=== PATIENT | female | born 1990 ===

== ENCOUNTER 2019-06-26 03:34 | Inpatient (IN) | payer BC ==
[2019-06-26] MEDS ORDERED: Ondansetron 4 MG/2 ML SDV IVPUSH PRN (07:01)
[2019-06-26] MEDS ORDERED: Carboprost Tromethamine 250 MCG/1 ML Amp IM PRN (07:01)
[2019-06-26] MEDS ORDERED: Methylergonovine 0.2 MG/1 ML Amp IM PRN (07:01)
[2019-06-26] MEDS ORDERED: Sodium Chloride 0.9% 10 ML SDV IV PRN (07:01)
[2019-06-26] MEDS ORDERED: Butorphanol 1 MG/ML SDV IVPUSH PRN (07:01)
[2019-06-26] MEDS ORDERED: Lidocaine 1% 50 ML MDV INJECT PRN (07:01)
[2019-06-26] MEDS ORDERED: Water For Irrigation,Sterile 1,000 ML Container IRR PRN (07:01)
[2019-06-26] MEDS ORDERED: Tranexamic Acid 1,000 MG in Sodium Chloride 0.9% 100 ML IV PRN (07:01)
[2019-06-26] MEDS ORDERED: Sodium Chloride 0.9% 2.5 ML Syringe FLUSH PRN (07:01)
[2019-06-26] MEDS ORDERED: Nalbuphine 10 MG/1 ML Vial IVPUSH PRN (07:01)
[2019-06-26] MEDS ORDERED: Sodium Chloride 0.9% 10 ML Syringe FLUSH PRN (07:01)
[2019-06-26] MEDS ORDERED: Misoprostol 200 MCG Tab PO PRN (07:01)
[2019-06-26] MEDS ORDERED: Oxytocin/0.9 % Sodium Chloride 30 UNIT/500 ML BAG IV SCH ×2 (07:15→08:30)
[2019-06-26] MEDS: Lactated Ringers 1,000 ML IV SCH ×2 (08:41→09:27)
[2019-06-26] MEDS ORDERED: Ropivacaine HCl/PF 100 ML ONE (09:16)
[2019-06-26] MEDS ORDERED: fentaNYL 100 MCG/2 ML SDV ONE (09:16)
--- NOTE | 2019-06-26 09:41 | PCM.PREANE ---
Preanesthetic Assessment - Anesthesia/Transfusion/Family Hx Anesthesia History: Prior Anesthesia Without Reaction Family History of Anesthesia Reaction: No - Physical Assessment NPO Status Date: 06/26/19 NPO Status Time: 08:00 Height: 1.68 m Weight: 83.915 kg ASA Class: 1 - Lab Values: Laboratory Last Values WBC 8.96 K/uL (4.0-11.0) 06/26/19 07:37 RBC 4.05 M/uL (4.30-5.90) L 06/26/19 07:37 Hgb 10.9 g/dL (12.0-16.0) L 06/26/19 07:37 Hct 35.2 % (36.0-46.0) L 06/26/19 07:37 MCV 86.9 fL (80.0-98.0) 06/26/19 07:37 MCH 26.9 pg (27.0-32.0) L 06/26/19 07:37 MCHC 31.0 g/dL (31.0-37.0) 06/26/19 07:37 RDW Std Deviation 45.7 fl (28.0-62.0) 06/26/19 07:37 RDW Coeff of Roc 15 % (11.0-15.0) 06/26/19 07:37 Plt Count 250 K/uL (150-400) 06/26/19 07:37 MPV 9.80 fL (7.40-12.00) 06/26/19 07:37 Nucleated RBC % 0.0 /100WBC 06/26/19 07:37 Nucleated RBCs # 0 K/uL 06/26/19 07:37 Urine Color YELLOW 06/26/19 06:05 Urine Appearance CLEAR 06/26/19 06:05 Urine pH 6.0 (5.0-8.0) 06/26/19 06:05 Ur Specific [place] <= 1.005 (1.001-1.035) 06/26/19 06:05 Urine Protein NEGATIVE mg/dL (NEGATIVE) 06/26/19 06:05 Urine Glucose (UA) NEGATIVE mg/dL (NEGATIVE) 06/26/19 06:05 Urine Ketones NEGATIVE mg/dL (NEGATIVE) 06/26/19 06:05 Urine Occult Blood TRACE-INTACT (NEGATIVE) H 06/26/19 06:05 Urine Nitrite NEGATIVE (NEGATIVE) 06/26/19 06:05 Urine Bilirubin NEGATIVE (NEGATIVE) 06/26/19 06:05 Urine Urobilinogen 0.2 EU/dL (<2.0) 06/26/19 06:05 Ur Leukocyte Esterase TRACE (NEGATIVE) H 06/26/19 06:05 Blood Type A POSITIVE 06/26/19 07:37 Antibody Screen NEGATIVE 06/26/19 07:37 - Allergies Allergies/Adverse Reactions: Allergies Allergy/AdvReac Type Severity Reaction Status Date / Time No Known Allergies Allergy Verified 06/26/19 03:49 - Acknowledgements Anesthesia Type Planned: Epidural Pt an Appropriate Candidate for the Planned Anesthesia: Yes Alternatives and Risks of Anesthesia Discussed w Pt/Guardian: Yes Pt/Guardian Understands and Agrees with Anesthesia Plan: Yes PreAnesthesia Questionnaire - Past Health History Medical/Surgical History: Denies 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 Smoking Status *Q: Never Smoker Second Hand Smoke Exposure: No Recreational Drug Use History: No - HOME MEDS Home Medications: Home Meds Iron 1 06/26/19 [History] Loratadine [Claritin] 06/26/19 [History] Pnv #30/Iron Carb&Aspg/Fa/Om3 [OB Complete with DHA Softgel] 1 tab 06/26/19 [ History] - CURRENT (IN HOUSE) MEDS Current Meds: Current Medications Butorphanol Tartrate (Stadol) 1 mg IVPUSH Q1H PRN PRN Reason: Pain Carboprost Tromethamine (Hemabate Ds) 250 mcg IM ASDIRECTED PRN PRN Reason: Post Hemorrhage Tranexamic Acid 1,000 mg/ (Sodium Chloride) 110 mls @ 660 mls/hr IV ONETIME PRN PRN Reason: Bleeding Lactated Ringer's (Ringers, Lactated) 1,000 mls @ 150 mls/hr IV ASDIRECTED ELIZABETH Last Admin: 06/26/19 09:27 Dose: 150 mls/hr Oxytocin/Sodium Chloride (Oxytocin 30 Unit/500 Ml-Ns) 30 unit in 500 mls @ 999 mls/hr IV TITRATE ELIZABETH Oxytocin/Sodium Chloride (Oxytocin 30 Unit/500 Ml-Ns) 30 unit in 500 mls @ 2 mls/hr IV TITRATE ELIZABETH; Protocol Last Infusion: 06/26/19 09:05 Dose: 0 munits/min, 0 mls/hr Lidocaine HCl (Xylocaine 1%) 50 ml INJECT ONETIME PRN PRN Reason: Laceration repair Methylergonovine Maleate (Methergine) 0.2 mg IM ASDIRECTED PRN PRN Reason: Post Hemorrhage Misoprostol (Cytotec) 200 mcg PO ONETIME PRN PRN Reason: Post Hemorrhage Nalbuphine HCl (Nubain) 10 mg IVPUSH Q1H PRN PRN Reason: Pain (severe 7-10) Ondansetron HCl (Zofran) 4 mg IVPUSH Q6H PRN PRN Reason: Nausea/Vomiting Sodium Chloride (Saline Flush) 10 ml FLUSH ASDIRECTED PRN PRN Reason: Keep Vein Open Sodium Chloride (Saline Flush) 2.5 ml FLUSH ASDIRECTED PRN PRN Reason: Keep Vein Open Sodium Chloride (Normal Saline) 10 ml IV ASDIRECTED PRN PRN Reason: IV Use Sterile Water (Sterile Water For Irrigation) 1,000 ml IRR ASDIRECTED PRN PRN Reason: delivery Discontinued Medications Fentanyl (Sublimaze) Confirm Administered Dose 100 mcg .ROUTE .STK-MED ONE Stop: 06/26/19 09:17 Ropivacaine (Naropin 0.2%) Confirm Administered Dose 100 mls @ as directed .ROUTE .STK-MED ONE Stop: 06/26/19 09:17
--- NOTE | 2019-06-26 09:43 | PCM.PRNOTE ---
- Free Text/Narrative Note: Anes Note Patient requests epidural for L&D. Sitting position, Level L3-L4 midline approach. Sterile technique, chloraprep scrub to lumbar area. Sterile fenestrated drape applied. Epidural space easily achieved using FIDE technique. FIDE at 3 cm. Cath threaded 5 cm with ease. Cath secured at skin at 9 cm. 0925 Test 3 cc 1.5% lido wtih epi negative. 09 Load 10 cc 0.2% ropiv with 1 mcg cc fentanyl in slow divided doses. 0935 Pump started with 90 cc same solution. Rate is 8 cc hr with 6 cc q 20 min prn bolus. Yina well. 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
[2019-06-26 09:48] LABS: BLOOD UREA NITROGEN,BUN 8 mg/dL (7.0-18.0)
[2019-06-26] MEDS ORDERED: Docusate Sodium 100 MG Cap PO PRN (12:46)
[2019-06-26] MEDS ORDERED: oxyCODONE 5 MG Tab PO PRN (12:46)
[2019-06-26] MEDS ORDERED: Benzocaine/Menthol 20%-0.5% Spray 78 GM Cannister TOP PRN (12:46)
[2019-06-26] MEDS ORDERED: Acetaminophen 500 MG Tab PO PRN ×2 (12:46)
[2019-06-26] MEDS ORDERED: Lanolin 100% Cream 7 GM Tube TOP PRN (12:46)
[2019-06-26] MEDS ORDERED: Witch Hazel Medicated Pads 40/Jar TOP PRN (12:46)
[2019-06-26] MEDS ORDERED: Bisacodyl 10 MG Supp RECTAL PRN (12:46)
[2019-06-26] MEDS ORDERED: Ibuprofen 400 MG Tab PO PRN (12:46)
--- NOTE | 2019-06-26 12:54 | PCM.DEL ---
L & D Note - General Info Date of Service: 06/26/19 Mother's Due Date: 07/01/19 - Delivery Note Labor: Spontaneous, Augmented by ARM Delivery Outcome: Livebirth Presentation: Right Occiput Anterior (RIKY) Nuchal Cord: None Anesthesia Type: Epidural Amniotic Fluid Description: Clear Episiotomy Type: None Laceration: None Placenta: Intact Cord: 3 Vessels Estimated Blood Loss: 300 Resuscitation Needed: No Score 1 min: 9 Score 5 min: 9 Delivery Comments (Free Text/Narrative):: Live female delivered at 1225pm 9/9, wt 3700g - General Info Date of Service: 06/26/19 - Patient Data Weight - Most Recent: 83.915 kg Lab Results Last 24 Hours: Laboratory Results - last 24 hr 06/26/19 06/26/19 06/26/19 Range/Units 06:05 07:37 07:37 WBC 8.96 (4.0-11.0) K/uL RBC 4.05 L (4.30-5.90) M/uL Hgb 10.9 L (12.0-16.0) g/dL Hct 35.2 L (36.0-46.0) % MCV 86.9 (80.0-98.0) fL MCH 26.9 L (27.0-32.0) pg MCHC 31.0 (31.0-37.0) g/dL RDW Std Deviation 45.7 (28.0-62.0) fl RDW Coeff of Roc 15 (11.0-15.0) % Plt Count 250 (150-400) K/uL MPV 9.80 (7.40-12.00) fL Nucleated RBC % 0.0 /100WBC Nucleated RBCs # 0 K/uL BUN (7.0-18.0) mg/dL Creatinine (0.6-1.0) mg/dL Est Cr Clr Drug Dosing mL/min Estimated GFR (MDRD) ml/min Uric Acid (2.6-7.2) mg/dL AST (15-37) IU/L ALT (14-63) IU/L Lactate Dehydrogenase (81-234) U/L Urine Color YELLOW Urine Appearance CLEAR Urine pH 6.0 (5.0-8.0) Ur Specific [place] <= 1.005 (1.001-1.035) Urine Protein NEGATIVE (NEGATIVE) mg/dL Urine Glucose (UA) NEGATIVE (NEGATIVE) mg/dL Urine Ketones NEGATIVE (NEGATIVE) mg/dL Urine Occult Blood TRACE-INTACT H (NEGATIVE) Urine Nitrite NEGATIVE (NEGATIVE) Urine Bilirubin NEGATIVE (NEGATIVE) Urine Urobilinogen 0.2 (<2.0) EU/dL Ur Leukocyte Esterase TRACE H (NEGATIVE) Blood Type A POSITIVE Antibody Screen NEGATIVE 06/26/19 Range/Units 07:37 WBC (4.0-11.0) K/uL RBC (4.30-5.90) M/uL Hgb (12.0-16.0) g/dL Hct (36.0-46.0) % MCV (80.0-98.0) fL MCH (27.0-32.0) pg MCHC (31.0-37.0) g/dL RDW Std Deviation (28.0-62.0) fl RDW Coeff of Roc (11.0-15.0) % Plt Count (150-400) K/uL MPV (7.40-12.00) fL Nucleated RBC % /100WBC Nucleated RBCs # K/uL BUN 8 (7.0-18.0) mg/dL Creatinine 0.7 (0.6-1.0) mg/dL Est Cr Clr Drug Dosing 110.01 mL/min Estimated GFR (MDRD) > 60.0 ml/min Uric Acid 3.8 (2.6-7.2) mg/dL AST 14 L (15-37) IU/L ALT 15 (14-63) IU/L Lactate Dehydrogenase 161 (81-234) U/L Urine Color Urine Appearance Urine pH (5.0-8.0) Ur Specific [place] (1.001-1.035) Urine Protein (NEGATIVE) mg/dL Urine Glucose (UA) (NEGATIVE) mg/dL Urine Ketones (NEGATIVE) mg/dL Urine Occult Blood (NEGATIVE) Urine Nitrite (NEGATIVE) Urine Bilirubin (NEGATIVE) Urine Urobilinogen (<2.0) EU/dL Ur Leukocyte Esterase (NEGATIVE) Blood Type Antibody Screen Med Orders - Current: Current Medications Butorphanol Tartrate (Stadol) 1 mg IVPUSH Q1H PRN PRN Reason: Pain Carboprost Tromethamine (Hemabate Ds) 250 mcg IM ASDIRECTED PRN PRN Reason: Post Hemorrhage Tranexamic Acid 1,000 mg/ (Sodium Chloride) 110 mls @ 660 mls/hr IV ONETIME PRN PRN Reason: Bleeding Lactated Ringer's (Ringers, Lactated) 1,000 mls @ 150 mls/hr IV ASDIRECTED [facility]IZABETH Last Admin: 06/26/19 09:27 Dose: 150 mls/hr Oxytocin/Sodium Chloride (Oxytocin 30 Unit/500 Ml-Ns) 30 unit in 500 mls @ 999 mls/hr IV TITRATE [facility] Last Admin: 06/26/19 12:41 Dose: 500 mls/hr Oxytocin/Sodium Chloride (Oxytocin 30 Unit/500 Ml-Ns) 30 unit in 500 mls @ 2 mls/hr IV TITRATE ELIZABETH; Protocol Last Infusion: 06/26/19 09:05 Dose: 0 munits/min, 0 mls/hr Lidocaine HCl (Xylocaine 1%) 50 ml INJECT ONETIME PRN PRN Reason: Laceration repair Methylergonovine Maleate (Methergine) 0.2 mg IM ASDIRECTED PRN PRN Reason: Post Hemorrhage Misoprostol (Cytotec) 200 mcg PO ONETIME PRN PRN Reason: Post Hemorrhage Nalbuphine HCl (Nubain) 10 mg IVPUSH Q1H PRN PRN Reason: Pain (severe 7-10) Ondansetron HCl (Zofran) 4 mg IVPUSH Q6H PRN PRN Reason: Nausea/Vomiting Sodium Chloride (Saline Flush) 10 ml FLUSH ASDIRECTED PRN PRN Reason: Keep Vein Open Sodium Chloride (Saline Flush) 2.5 ml FLUSH ASDIRECTED PRN PRN Reason: Keep Vein Open Sodium Chloride (Normal Saline) 10 ml IV ASDIRECTED PRN PRN Reason: IV Use Sterile Water (Sterile Water For Irrigation) 1,000 ml IRR ASDIRECTED PRN PRN Reason: delivery Last Admin: 06/26/19 12:42 Dose: 1,000 ml Discontinued Medications Fentanyl (Sublimaze) Confirm Administered Dose 100 mcg .ROUTE .STK-MED ONE Stop: 06/26/19 09:17 Ropivacaine (Naropin 0.2%) Confirm Administered Dose 100 mls @ as directed .ROUTE .STK-MED ONE Stop: 06/26/19 09:17 - Problem List & Annotations (1) Vaginal delivery SNOMED Code(s): 359590799 Code(s): O80 - ENCOUNTER FOR FULL-TERM UNCOMPLICATED DELIVERY Status: Acute Current Visit: Yes - Problem List Review Problem List Initiated/Reviewed/Updated: Yes - My Orders Last 24 Hours: My Active Orders 06/26/19 09:21 PIH Panel [OM.PC] Routine 06/26/19 12:46 Acetaminophen [Tylenol Extra Strength] 1,000 mg PO Q4H PRN Acetaminophen [Tylenol Extra Strength] 500 mg PO Q4H PRN Benzocaine/Menthol [Dermoplast Pain Relief 20%-0.5% [place]] 78 gm TOP ASDIRECTED PRN Docusate Sodium [Colace] 100 mg PO BID PRN Ibuprofen [Motrin] 400 mg PO Q4H PRN Ibuprofen [Motrin] 800 mg PO Q6H PRN Lanolin [Lansinoh HPA] See Dose Instructions TOP ASDIRECTED PRN bisacodyL [Dulcolax] 10 mg RECTAL ONETIME PRN oxyCODONE 5 mg PO Q2H PRN witch Agnieszka [Tucks] 1 pad TOP ASDIRECTED PRN Resuscitation Status Routine 06/26/19 12:48 Patient Status [ADT] Routine May Shower [RC] ASDIRECTED Up ad Roseanna [RC] ASDIRECTED Vital Signs [RC] PER UNIT ROUTINE Assess Lochia [WOMSER] Per Unit Routine Assess Uterine Involution [WOMSER] Per Unit Routine Peripheral IV Discontinue [OM.PC] Routine 06/27/19 05:11 HEMOGLOBIN/HEMATOCRIT,HH [HEME] Timed
[2019-06-26] MEDS: Ibuprofen 800 MG Tab PO PRN ×2 (16:44→22:12)
--- NOTE | 2019-06-26 22:01 | OR ---
SURGEON: AZALIA SANTOS DATE OF PROCEDURE: 06/26/2019 PREOPERATIVE DIAGNOSIS: 29-year-old G2, P-1-0-0-1 at 39 weeks and 2 days, admitted for early labor. POSTOPERATIVE DIAGNOSIS: 29-year-old G2, P-1-0-0-1 at 39 weeks and 2 days, admitted for early labor. PROCEDURE: Normal spontaneous vaginal delivery. ESTIMATED BLOOD LOSS: 300. ANESTHESIA: Epidural. NOTES AND FINDING: Live female delivered at 12:25 p.m. score 9 and 9. Weight is 3700 g. BRIEF HISTORY: She is 29-year-old G2, P-1-0-0-1 at 39 weeks 2 days, low risk patient who came in complaining of contractions. She was noted to be 3 to 4 cm dilated, she became 5 cm. She was ruptured and clear fluid was noted. She made normal labor progress and became fully dilated. DESCRIPTION OF PROCEDURE: With the patient being fully dilated, she delivered the head in RIKY position followed subsequently by the anterior and posterior shoulder. Body of the was delivered. was placed on the maternal abdomen. Delayed cord clamping was observed. Placenta was delivered via controlled cord traction. The Pitocin was running. Cord blood gases were obtained and the perineum was inspected, noted to be intact. Bimanual uterine massage was done. Uterus was firm and lochia was normal and the patient was left in Labor and Delivery room in stable condition. All instrument and pad counts were correct x2. The patient tolerated the procedure well and was left in Labor and Delivery room in stable condition. ODETTE OROZCO /[id number]
[2019-06-27] MEDS: Ibuprofen 800 MG Tab PO PRN ×2 (04:21→10:55)
--- NOTE | 2019-06-27 07:14 | PCM48HPAN ---
Post Anesthesia Note - EVALUATION WITHIN 48HRS OF ANESTHETIC Vital Signs in Normal Range: Yes Patient Participated in Evaluation: Yes Respiratory Function Stable: Yes Airway Patent: Yes Cardiovascular Function Stable: Yes Hydration Status Stable: Yes Pain Control Satisfactory: Yes Nausea and Vomiting Control Satisfactory: Yes Mental Status Recovered: Yes Vital Signs: Last Vital Signs Temp 36.8 C 06/26/19 19:39 Pulse 88 06/26/19 19:39 Resp 17 06/26/19 19:39 BP 126/75 06/26/19 19:39 Pulse Ox 98 06/26/19 19:39
--- NOTE | 2019-06-27 09:39 | PCM.PNPP ---
- General Info Date of Service: 06/27/19 Functional Status: Reports: Pain Controlled, Tolerating Diet, Ambulating, Urinating - Review of Systems General: Denies: Fever, Weakness, Fatigue Pulmonary: Denies: Shortness of Breath Cardiovascular: Denies: Chest Pain, Palpitations, Lightheadedness Gastrointestinal: Denies: Abdominal Pain, Nausea, Vomiting Genitourinary: Denies: Flank Pain Musculoskeletal: Reports: No Symptoms Skin: Reports: No Symptoms Neurological: Reports: No Symptoms Psychiatric: Reports: No Symptoms - General Info Date of Service: 06/27/19 - Patient Data Vital Signs - Most Recent: Last Vital Signs Temp 97.9 C H 06/27/19 07:46 Pulse 85 06/27/19 07:46 Resp 18 06/27/19 07:46 BP 120/78 06/27/19 07:46 Pulse Ox 98 06/27/19 07:46 Weight - Most Recent: 83.915 kg Lab Results - Last 24 Hours: Laboratory Results - last 24 hr 06/26/19 06/26/19 06/26/19 Range/Units 07:37 12:25 12:57 Hgb (12.0-16.0) g/dL Hct (36.0-46.0) % Cord ABG pH 7.268 (7.18-7.38) Cord ABG Base Excess -4 (-10--2) Cord VBG pH 7.329 (7.25-7.45) Cord VBG Base Excess -5 (-10--2) BUN 8 (7.0-18.0) mg/dL Creatinine 0.7 (0.6-1.0) mg/dL Est Cr Clr Drug Dosing 110.01 mL/min Estimated GFR (MDRD) > 60.0 ml/min Uric Acid 3.8 (2.6-7.2) mg/dL AST 14 L (15-37) IU/L ALT 15 (14-63) IU/L Lactate Dehydrogenase 161 (81-234) U/L 06/27/19 Range/Units 04:55 Hgb 9.3 L (12.0-16.0) g/dL Hct 29.9 L (36.0-46.0) % Cord ABG pH (7.18-7.38) Cord ABG Base Excess (-10--2) Cord VBG pH (7.25-7.45) Cord VBG Base Excess (-10--2) BUN (7.0-18.0) mg/dL Creatinine (0.6-1.0) mg/dL Est Cr Clr Drug Dosing mL/min Estimated GFR (MDRD) ml/min Uric Acid (2.6-7.2) mg/dL AST (15-37) IU/L ALT (14-63) IU/L Lactate Dehydrogenase (81-234) U/L Med Orders - Current: Current Medications Acetaminophen (Tylenol Extra Strength) 500 mg PO Q4H PRN PRN Reason: Pain Last Admin: 06/26/19 19:53 Dose: 500 mg Acetaminophen (Tylenol Extra Strength) 1,000 mg PO Q4H PRN PRN Reason: Pain Benzocaine/Menthol (Dermoplast Pain Relief 20%-0.5% [place]) 78 gm TOP ASDIRECTED PRN PRN Reason: Perineal Comfort Measure Last Admin: 06/26/19 16:44 Dose: 1 can Bisacodyl (Dulcolax) 10 mg RECTAL ONETIME PRN PRN Reason: Constipation Butorphanol Tartrate (Stadol) 1 mg IVPUSH Q1H PRN PRN Reason: Pain Carboprost Tromethamine (Hemabate Ds) 250 mcg IM ASDIRECTED PRN PRN Reason: Post Hemorrhage Docusate Sodium (Colace) 100 mg PO BID PRN PRN Reason: Constipation Emollient Ointment (Lansinoh Hpa) 0 gm TOP ASDIRECTED PRN PRN Reason: Sore Nipples Last Admin: 06/26/19 16:44 Dose: 1 tube Tranexamic Acid 1,000 mg/ (Sodium Chloride) 110 mls @ 660 mls/hr IV ONETIME PRN PRN Reason: Bleeding Lactated Ringer's (Ringers, Lactated) 1,000 mls @ 150 mls/hr IV ASDIRECTED [facility] Last Admin: 06/26/19 09:27 Dose: 150 mls/hr Oxytocin/Sodium Chloride (Oxytocin 30 Unit/500 Ml-Ns) 30 unit in 500 mls @ 999 mls/hr IV TITRATE [facility] Last Admin: 06/26/19 12:41 Dose: 500 mls/hr Oxytocin/Sodium Chloride (Oxytocin 30 Unit/500 Ml-Ns) 30 unit in 500 mls @ 2 mls/hr IV TITRATE ELIZABETH; Protocol Last Infusion: 06/26/19 09:05 Dose: 0 munits/min, 0 mls/hr Ibuprofen (Motrin) 400 mg PO Q4H PRN PRN Reason: Pain Ibuprofen (Motrin) 800 mg PO Q6H PRN PRN Reason: Pain Last Admin: 06/27/19 04:21 Dose: 800 mg Lidocaine HCl (Xylocaine 1%) 50 ml INJECT ONETIME PRN PRN Reason: Laceration repair Methylergonovine Maleate (Methergine) 0.2 mg IM ASDIRECTED PRN PRN Reason: Post Hemorrhage Misoprostol (Cytotec) 200 mcg PO ONETIME PRN PRN Reason: Post Hemorrhage Nalbuphine HCl (Nubain) 10 mg IVPUSH Q1H PRN PRN Reason: Pain (severe 7-10) Ondansetron HCl (Zofran) 4 mg IVPUSH Q6H PRN PRN Reason: Nausea/Vomiting Oxycodone HCl (Oxycodone) 5 mg PO Q2H PRN PRN Reason: Pain Sodium Chloride (Saline Flush) 10 ml FLUSH ASDIRECTED PRN PRN Reason: Keep Vein Open Sodium Chloride (Saline Flush) 2.5 ml FLUSH ASDIRECTED PRN PRN Reason: Keep Vein Open Sodium Chloride (Normal Saline) 10 ml IV ASDIRECTED PRN PRN Reason: IV Use Sterile Water (Sterile Water For Irrigation) 1,000 ml IRR ASDIRECTED PRN PRN Reason: delivery Last Admin: 06/26/19 12:42 Dose: 1,000 ml Witch Faustina (Tucks) 1 pad TOP ASDIRECTED PRN PRN Reason: comfort care Discontinued Medications Fentanyl (Sublimaze) Confirm Administered Dose 100 mcg .ROUTE .STK-MED ONE Stop: 06/26/19 09:17 Last Admin: 06/26/19 15:31 Dose: Not Given Ropivacaine (Naropin 0.2%) Confirm Administered Dose 100 mls @ as directed .ROUTE .STK-MED ONE Stop: 06/26/19 09:17 Last Admin: 06/26/19 15:31 Dose: Not Given - Interaction Support Person: - Recovery Exam Fundal Tone: Firm Fundal Level: 1 Fingerbreadths Below Umbilicus Fundal Placement: Midline Lochia Amount: Small Lochia Color: Rubra/Red Perineum Description: Intact, Minimal Bruising/Swelling Episiotomy/Laceration: None Bladder Status: Voiding - Exam General: Alert, Oriented Neck: Supple Lungs: Normal Respiratory Effort Cardiovascular: Regular Rate, Regular Rhythm GI/Abdominal Exam: Normal Bowel Sounds, Soft Extremities: Pedal Edema (trace). No: Dae's Sign Skin: Warm, Dry, Intact Neurological: No New Focal Deficit Psy/Mental Status: Alert, Normal Affect, Normal Mood - Problem List & Annotations (1) Vaginal delivery SNOMED Code(s): 570521469 Code(s): O80 - ENCOUNTER FOR FULL-TERM UNCOMPLICATED DELIVERY Status: Acute Current Visit: Yes - Problem List Review Problem List Initiated/Reviewed/Updated: Yes - My Orders Last 24 Hours: My Active Orders 06/27/19 09:37 Ready for Discharge [RC] PER UNIT ROUTINE - Assessment Assessment:: PPD 1 status post - Plan Plan:: Patient is doing well overall, BPs have been 120/60s since delivery. Would like to go home later today. Discharge instructions reviewed. Follow up at [facility] 6 weeks. Discharge to home this afternoon. If develops headaches or visual changes, to call clinic for BP check.
== END 2019-06-27 15:18 | disposition home or self-care (01) | DRG 560 ==
LOC: MW.OBCHECK 03:34 → MW.OB 03:35 → MW.OBCHECK 07:01 → OBSVTOIN 12:46 → MW.OB 16:27
PROVIDERS: ADMIT Obstetrics & Gynecology; ATTEND Obstetrics & Gynecology
PROC: 10E0XZZ Delivery of Products of Conception, External Approach (ICD-10-PCS; principal; 2019-06-26)
PROC: 10907ZC Drainage of Amniotic Fluid, Therapeutic from Products of Conception, Via Natural or Artificial Opening (ICD-10-PCS; 2019-06-26)
PROC: 3E0R3BZ Introduction of Anesthetic Agent into Spinal Canal, Percutaneous Approach (ICD-10-PCS; 2019-06-26)
PROC: 00HU33Z Insertion of Infusion Device into Spinal Canal, Percutaneous Approach (ICD-10-PCS; 2019-06-26)
DX: O80 Encounter for full-term uncomplicated delivery (principal); Z37.0 Single live birth; Z3A.39 39 weeks gestation of pregnancy
CPT/HCPCS: 36415; 51702; 59025; 59409; 81003; 82565; 82803; 83615; 84450; 84460; 84520; 84550; 85014; 85018; 85027; 86592; 86593; 86850; 86900; 86901; A9270-GY; J2590; J7120